=== PATIENT | male | born 1980 | race Caucasian/White ===

== ENCOUNTER 2022-12-01 18:15 | Emergency (ER) | payer BC, SELFPAY ==
--- NOTE | ~2022-12-01 | CT_ITS ---
EXAMINATION: CTA chest DATE: 12/01/2022 21:24 INDICATION: R/O Dissection. History of bicuspid valve. TECHNIQUE: Computed tomography (CT) of the chest was performed with 100 mL Omnipaque-350 intravenous contrast in the arterial phase. Automated exposure control and iterative reconstruction technique wer e employed. The dose-length product was 663.05 mGy-cm. COMPARISON: None. FINDINGS: CHEST: Thoracic aorta: Focal calcification at the level of the aortic leaflets. Severe fusiform ectasia of t he adjacent aorta measuring up to 4.9 cm. No dissection. Lung parenchyma and airways: Lungs and airways are clear. Thoracic inlet, axillae and chest wall: No thyroid or soft tissue mass. No axillary lymphadenopathy. Mediastinum: No mass or lymphadenopathy. Heart and pericardium: Normal heart size. No pericardial effusion. Coronary artery calcifications: Absent. Pleura: No effusion or mass. Upper abdomen: 1.5 cm distal esophageal diverticulum. Moderate distal esophageal wall edema. Thoracic bones: No acute osseous finding in the chest. IMPRESSION: No aortic dissection. Severe ascending thoracic aortic ectasia. Recommend specialist referral, such as cardiology, vascular surgery, and/or cardiothoracic surgery, if the patient is not already under such care. Reviewed, dictated and finalized at location K. IMPRESSION: No aortic dissection. Severe ascending thoracic aortic ectasia. Recommend specialist referral, such a s cardiology, vascular surgery, and/or cardiothoracic surgery, if the patient i s not already under such care.
--- NOTE | ~2022-12-01 | XR_ITS ---
EXAMINATION: XR chest 1V Exam Date/Time: 12/01/2022 21:21 CDT HISTORY: lightheaded AND DIZZINESS X 1 DAY Comparison: 10/15/2012; CTA chest 12/01/2022. RESULT: Lines, tubes, and devices: None. Lungs and pleura: Clear. Cardiomediastinal silhouette: Increased prominence of the aortic root. Other: No acute osseous or upper abdominal finding. IMPRESSION: Increased aortic root dilation, corresponding with the finding of severe ascending aortic ectasia in the concurrent CT of the chest. Reviewed, dictated and finalized at location K. IMPRESSION: Increased aortic root dilation, corresponding with the finding of severe ascend ing aortic ectasia in the concurrent CT of the chest.
[2022-12-01 18:34] VITALS: BP 117/64; PULSE 66; RESP 17; TEMP 36.4; O2SAT 98
--- NOTE | 2022-12-01 18:37 | ECG_ITS ---
Measurements Intervals [place] Rate: 66 P: 22 W[place]: 176 QRS: 10 QRSD: 98 T: 17 QT: 389 QTc: 409 Interpretive Statements SINUS RHYTHM VOLTAGE CRITERIA FOR LVH BASELINE ARTIFACT- I, III, AVL BORDERLINE ECG NO PREVIOUS ECG AVAILABLE FOR COMPARISON Electronically Signed On 12-01-2022 21:05:25 CDT by Neno Reno D.O.
[2022-12-01 18:57] LABS: Basophils Percent Auto 0.4 % (0.2-1.2); Eosinophils Absolute Auto 0.1 K/mm3 (0-0.3); Eosinophils Percent Auto 2.1 % (0-4.4); Hemoglobin 14.3 g/dL (14.0-18.0); Immature Granulocyte Absolute 0.02 K/mm3 (0.00-0.031); Immature Granulocyte Percent A 0.4 % (0-0.5); Lymphocytes Absolute Auto 1.38 K/mm3 (0.9-3.2); Lymphocytes Percent Auto 26.4 % (18.3-44.2); Mean Corpuscular HGB Conc 34.9 g/dl (32-36); Mean Corpuscular Hemoglobin 31.2 pg (26-34); Mean Corpuscular Volume 89.5 fl (80-100); Monocytes Absolute Auto 0.4 K/mm3 (0.1-0.6); Monocytes Percent Auto 7.5 % (2.6-8.5); Neutrophils Absolute Auto 3.3 K/mm3 (1.3-6.7); Neutrophils Percent Auto 63.2 % (45.5-73.1); Platelet Count Result 204 k/mm3 (150-375); Red Blood Count 4.58 M/mm3 (4.6-6.20); Red Cell Distribution Width 12.6 % (11.5-14.5); White Blood Count 5.2 K/mm3 (4.5-10.0)
[2022-12-01 19:03] LABS: Alanine Aminotransferase 32 U/L (6-50); Albumin Level 4.4 g/dL (3.5-5.1); Alkaline Phosphatase 55 U/L (38-126); Anion Gap 9 mmol/L (8-16); Aspartate Amino Transferase 33 U/L (17-59); Bilirubin,Total 0.5 mg/dL (0.2-1.3); Blood Urea Nitrogen 15 mg/dL (9-20); Calcium 9.2 mg/dL (8.4-10.2); Carbon Dioxide 24 mmol/L (22-30); Chloride 104 mmol/L (98-107); Estimated CRCL calculation 107 ml/min; Estimated Glomerular Filt Rate > 60; Glucose 95 mg/dL (65-110); Potassium 3.9 mmol/L (3.4-5.0); Sodium 137 mmol/L (137-145)
[2022-12-01 19:40] LABS: Troponin I < 0.012 ng/mL (0.000-0.034)
[2022-12-01 21:06] VITALS: BP 129/74; PULSE 61; RESP 18; O2SAT 98
--- NOTE | 2022-12-01 21:06 | PC.NURSE ---
Patient denies any pain or SOB at this time
[2022-12-01] MEDS: SODIUM CHLORIDE 0.9% IV 1,000 ML 999 ML IV CONT (21:30)
[2022-12-01 21:33] LABS: Lipase 121 U/L (23-300)
--- NOTE | 2022-12-01 22:21 | ED.GENADULT ---
HPI - General Adult General Chief complaint: Syncope Stated complaint: feel like I'm going to pass out Time Seen by Provider: 12/01/22 20:43 History of Present Illness HPI narrative: 42-year-old male with a history of bicuspid aortic valve and enlarged aortic root reports for evaluation for presyncopal episodes today. Patient states he has been feeling off and at times feels lightheaded with tunnel vision and associated intrascapular pain. He denies chest pain or shortness of breath. Upon my evaluation, patient states his symptoms have completely resolved and he feels back to his baseline. He does report feeling nauseous in the EMS on his way here but that is also since resolved. He denies vomiting, diarrhea, chest pain or shortness of breath, abdominal pain, fever, cough or congestion, vision changes, focal numbness or weakness. He follows with Dr. Chambers who is his psych social worker at [facility]. States he last saw his psych social worker 1 month ago and had a reassuring echo and cardiac MRI. States he knows he needs to get his aortic valve replaced eventually as it is becoming more stenotic. Related Data Allergies Allergy/AdvReac Type Severity Reaction Status Date / Time No Known Allergies Allergy Unverified 10/15/12 16:37 Review of Systems Review of Systems: CONSTITUTIONAL: Denies fever, chills EYES: Denies visual changes, redness, or discharge. ENT: Denies rhinorrhea, congestion, sore throat, or otalgia. CARDIOVASCULAR: See HPI RESPIRATORY: Denies cough or dyspnea. GASTROINTESTINAL: Denies abdominal pain, nausea, vomiting, or diarrhea. GENITOURINARY: Denies dysuria or hematuria. SKIN: Denies rash or itching. MUSCULOSKELETAL: See HPI NEUROLOGIC: See HPI PSYCHIATRIC: Denies anxiety or depression. Exam Narrative: GENERAL: Well-appearing, in no acute distress. Patient resting comfortably in exam bed. He is pleasant and conversational. HEAD: Normocephalic EYES: PERRLA ENT: Nares clear. Mucous membranes moist. Oropharynx without tonsillar hypertrophy exudate or other lesions. NECK: Supple. BACK: No midline thoracolumbar spinous tenderness, step-offs or deformities. CHEST: No respiratory distress. Clear to auscultation, no adventitious breath sounds. HEART: Regular rate and rhythm. No murmur heard. Normal peripheral pulses. ABDOMEN: Soft, nontender, normal active bowel sounds. EXTREMITIES: Normal range of motion. No edema. SKIN: Warm, dry, no rash. NEURO: No focal deficits. Alert and oriented x3. Cranial nerves II through XII intact. Strength 5/5 in BUE and BLE. Sensation intact throughout. Ambulatory without difficulty. PSYCH: Normal mood and affect. Course Vital Signs Vital signs: Vital Signs Temperature 97.6 F 12/01/22 18:34 Pulse Rate 66 12/01/22 18:34 Respiratory Rate 17 12/01/22 18:34 Blood Pressure 117/64 12/01/22 18:34 Pulse Oximetry 98 12/01/22 18:34 Oxygen Delivery Room Air 12/01/22 18:34 Temperature 97.6 F 12/01/22 18:34 Pulse Rate 61 12/01/22 21:06 Respiratory Rate 18 12/01/22 21:06 Blood Pressure 129/74 12/01/22 21:06 Pulse Oximetry 98 12/01/22 21:06 Oxygen Delivery Room Air 12/01/22 18:34 Medical Decision Making MDM Narrative Medical decision making narrative: 42-year-old male with a history of bicuspid aortic valve and enlarged aortic root reports for evaluation for presyncopal episodes today. Denies LOC. Vital stable. He is well-appearing on exam. He is neurovascularly intact and symptoms had resolved prior to arrival. Labs significant for no leukocytosis, hemoglobin 4.58, chemistries unremarkable. Troponin 1 and 2 normal. EKG shows sinus rhythm without ST elevations or depressions. residential monitor without evidence of arrhythmias, there was evidence of a PVC. CTA obtained given patient's history which shows no aortic dissection, does reveal severe ascending thoracic aortic ectasia, for which patient is already aware of. I have no prior recor
[2022-12-01 22:57] LABS: Troponin I < 0.012 ng/mL (0.000-0.034)
[2022-12-01 23:53] VITALS: BP 120/75; PULSE 64; RESP 17; O2SAT 98
--- NOTE | 2022-12-19 09:48 | PC.NURSE ---
LATE ENTRY This note is being entered to document information to the patient's record. The following information was omitted on [12/01/22], by [Tamiko Love]. NS stop time is 0637.
== END 2022-12-01 23:55 | disposition home or self-care (01) ==
PROVIDERS: Emergency Medicine; Emergency Provider Physician Assistant
DX: R42 Dizziness and giddiness (principal); I77.810 Thoracic aortic ectasia; R94.31 Abnormal electrocardiogram [ECG] [EKG]
CPT/HCPCS: 36415; 71045; 71275; 80053; 83690; 83735; 84484; 85025; 93005; 96360; 99284; J7030; Q9967